=== PATIENT | female | born 1990 | race Caucasian/White ===

== ENCOUNTER 2017-06-17 12:28 | Emergency (ER) ==
[2017-06-17 12:44] VITALS: BP 127/96; TEMP 97.9; BMI 37.3
--- NOTE | 2017-06-17 13:06 | ED.PDOC ---
General ED Provider: Dr. BARRIE SADLER Chief Complaint: Eye Problem Stated Complaint: left eye nodule Time Seen by Physician: 12:34 Mode of Arrival: Walk-In Information Source: Patient Exam Limitations: No limitations Nursing and Triage Documentation Reviewed and Agree: Yes (seen with staff) EENT Complaint Exam - Eye Complaint/Exam Symptoms Are: Still present Timing: Constant Initial Severity: Mild Current Severity: Mild Location: Left Aggravating: Reports: None Alleviating: Reports: None (pt lanced the nodule today) Associated Signs and Symptoms: Denies: Photophobia, Clear drainage, Purulent drainage, Vision impairment, Fever, Swelling Related History: Reports: Similar episode Eye Surgical History: Reports: None Penetrating Injury Risk Factors: None Globe Rupture Risk Factors: None Acute Glaucoma Risk Factors: None Optic Artery Occlusion Risk Factors: None Visual Field: Normal Globe Findings: Intact Lid Findings: Normal (right nodule epper eye lid) Corneal Findings: Clear Review of Systems - Review Of Systems Constitutional: Reports: No symptoms Eyes: Reports: No symptoms Ears, Nose, Mouth, Throat: Reports: No symptoms Respiratory: Reports: No symptoms Cardiac: Reports: No symptoms GI: Reports: No symptoms : Reports: No symptoms Musculoskeletal: Reports: No symptoms Skin: Reports: No symptoms Neurological: Reports: No symptoms Endocrine: Reports: No symptoms Hematologic/Lymphatic: Reports: No symptoms All Other Systems: Reviewed and Negative Past Medical History - Past Medical History Previously Healthy: Yes Endocrine: Reports: None Cardiovascular: Reports: None Respiratory: Reports: None Hematological: Reports: None Gastrointestinal: Reports: None Genitourinary: Reports: None Neuro/Psych: Reports: None Musculoskeletal: Reports: None Cancer: Reports: None Last Menstrual Period: last month around the 15 - Surgical History General Surgical History: Reports: None - Family History Family History: Reports: None - Social History Smoking Status: Current some day smoker Hx Substance Use: No Alcohol Screening: None - Immunizations Tetanus Shot up to Date: Yes Physical Exam - Physical Exam Appearance: Well-appearing, No pain distress, Well-nourished Eyes: JUDSON, EOMI (papule upper lid see photos) ENT: Ears normal, Nose normal, Oropharynx normal Respiratory: Airway patent, Breath sounds clear, Breath sounds equal, Respirations nonlabored Cardiovascular: RRR, Pulses normal, No rub, No murmur GI/: Soft, Nontender, No masses, Bowel sounds normal, No Organomegaly Musculoskeletal: Normal strength, ROM intact, No edema, No calf tenderness Skin: Warm, Dry, Normal color Neurological: Sensation intact, Motor intact, Reflexes intact, Cranial nerves intact, Alert, Oriented Psychiatric: Affect appropriate, Mood appropriate Critical Care Note - Critical Care Note Total Time (mins): 0 Course - Course Vital Signs: Temp Pulse Resp BP Pulse Ox 06/17/17 12:32 97.9 F 90 20 127/96 H 97 Departure - Departure Time of Disposition: 13:06 (photos attached ) Disposition: HOME SELF-CARE Discharge Problem: Hordeolum externum Qualifiers: Laterality: left Eyelid: upper Qualifier Code: (H00.014) Hordeolum externum left upper eyelid Instructions: Stye (ED) Condition: Good Pt referred to PMD for follow-up: Yes Additional Instructions: Please call your Family Physician as soon as possible to schedule a follow-up appointment. Allergies/Adverse Reactions: Allergies No Known Allergies Allergy (Verified 06/17/17 12:39) Home Medications: Ambulatory Orders Diazepam [Valium] 10 mg PO TID PRN 09/14/16 Lamotrigine [Lamictal] 100 mg PO DAILY 09/14/16 Lurasidone HCl [Latuda] 60 mg PO d 09/14/16
== END 2017-06-17 13:13 | disposition home or self-care (01) ==
LOC: ED 12:28
DX: H00.014 Hordeolum externum left upper eyelid (principal); F17.210 Nicotine dependence, cigarettes, uncomplicated
CPT/HCPCS: 99282

== ENCOUNTER 2017-10-24 17:49 | Emergency (ER) ==
[2017-10-24 17:55] VITALS: BMI 35.7
--- NOTE | 2017-10-24 18:27 | ED.PDOC ---
General <JACOBBobALEX HERNANDEZ - Last Filed: 10/24/17 22:32> Stated Complaint: SUICIDAL IDEATION Time Seen by Physician: 18:00 (SEEN WITH JOSEF Manriquez AT ALL TIMES ) Mode of Arrival: Walk-In Information Source: Patient Exam Limitations: No limitations (STATED HER MEDICAL CARD IS CANCELED OUT SHE CAN NO AFFORD HER MEDS ) Nursing and Triage Documentation Reviewed and Agree: Yes Reviewed sepsis parameters & appropriate labs ordered?: Yes System Inflammatory Response Syndrome: Not Applicable System Inflammatory Response Syndrome: Not Applicable <BARRIE SADLER - Last Filed: 10/31/17 14:44> ED Provider: Dr. BARRIE SADLER Chief Complaint: Psychiatric Complaint Primary Care Provider: SHANIQUA VENTURA Sepsis Protocol: For patient's 13 years and over: Temp is 96.8 and below OR 101 and greater Pulse >90 BPM Resp >20/minute Acutely Altered Mental Status Are patient's symptoms suggestive of a new infection, such as: -Pneumonia -Skin, Soft Tissue -Endocarditis -UTI -Bone, Joint Infection -Implantable Device -Acute Abdominal Infection -Wound Infection -Meningitis -Blood Stream Catheter Infection -Unknown Psychological Complaint Exam - Psychiatric Complaint/Exam Patient Complains Of: Present: Suicidal thoughts, Other (HER MEDICAL CARD IS CANCELD OUT OF HER MEDS ) Onset/Duration: 3 DAYS WORSE TODAY Symptoms Are: Still present Timing: Constant Episodes Lasting: Hours Initial Severity: Mild Current Severity: Mild Character: Present: Fearful, Anxious, Frustrated Aggravating: Reports: Recent stress ( SEE ABOVE) Associated Signs And Symptoms: Denies: Hostile, Confused, Hallucinating, Paranoid behavior, Sleep disturbance, Appetite change Related History: Reports: Suicidal thoughts. Denies: Suicidal plan, Suicidal gestures, Homicidal thoughts, Homicidal plan, Homicidal gestures, Prior attempts , Recent stressors, Drug ingestion Completed Suicide Risk Factors: None Patient In Custody Of Police: No Social Withdrawal Present: No Social Isolation Present: No Prior Suicide Attempt: No Injury From Prior Suicide Attempt: No Related Surgical History: Reports: None Patient Uncooperative For Exam: No Mood: Present: Depressed Appearance: Present: Clean Thought Process: Present: Logical Insight: Present: Good Memory: Intact Judgement: Normal Danger To Others: No Patient Medically Stable For: Psych evaluation Differential Diagnoses: Suicidal 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 ) <BARRIE SADLER - Last Filed: 10/31/17 14:44> Review of Systems - Review Of Systems Constitutional: Reports: No symptoms Eyes: Reports: No symptoms Ears, Nose, Mouth, Throat: Reports: No symptoms Respiratory: Reports: No symptoms Cardiac: Reports: No symptoms GI: Reports: No symptoms : Reports: No symptoms Musculoskeletal: Reports: No symptoms Skin: Reports: No symptoms Neurological: Reports: Anxiety, Depressed, Emotional problems Endocrine: Reports: No symptoms Hematologic/Lymphatic: Reports: No symptoms All Other Systems: Reviewed and Negative <VIKTORIYABARRIE Last Filed: 10/31/17 14:44> Past Medical History - Past Medical History Previously Healthy: Yes Endocrine: Reports: None Cardiovascular: Reports: None Respiratory: Reports: None Hematological: Reports: None Gastrointestinal: Reports: None Genitourinary: Reports: None Neuro/Psych: Reports: None Musculoskeletal: Reports: None Cancer: Reports: None Last Menstrual Period: yesterday patient finished. - Surgical History General Surgical History: Reports: None - Family History Family History: Reports: None - Social History Smoking Status: Current some day smoker Hx Substance Use: No Alcohol Screening: None <MATTHEWMITESHBARRIE Filed: 10/31/17 14:44> Physical Exam - Physical Exam Appearance: Well-appearing, No pain distress, Well-nourished Eyes: JUDSON, EOMI, Conjunctiva clear ENT: Ears normal, Nose normal, Oropharynx normal Respiratory: Airway patent, Breath sounds clear, Breath sounds equal, Respirations nonlabored Cardiovascular: RRR, Pulses normal, No rub, No murmur GI/: Soft, Nontender, No masses, Bowel sounds normal, No Organomegaly Musculoskeletal: Normal strength, ROM intact, No edema, No calf tenderness Skin: Warm, Dry, Normal color Neurological: Sensation intact, Motor intact, Reflexes intact, Cranial nerves intact, Alert, Oriented Psychiatric: Affect appropriate, Mood appropriate <VIKTORIYABARRIE Last Filed: 10/31/17 14:44> Physician Notification - Case Discussed Physician Notified: JACOB Time of Notification: 19:00 <VIKTORIYABARRIE Rojas Last Filed: 10/31/17 14:44> Critical Care Note - Critical Care Note Total Time (mins): 0 <VIKTORIYABARRIE Last Filed: 10/31/17 14:44> Course - Course Hematology/Chemistry: 10/24/17 18:28 10/24/17 18:28 <ALEX JERRY - Last Filed: 10/24/17 22:32> - Course Hematology/Chemistry: 10/24/17 18:28 10/24/17 18:28 <BARRIE SADLER - Last Filed: 10/31/17 14:44> - Course Orders, Labs, Meds: Lab Review 10/24/17 10/24/17 10/24/17 18:28 18:28 18:28 WBC 10.10 RBC 4.53 Hgb 13.8 Hct 39.6 MCV 87.4 MCH 30.5 MCHC 34.8 RDW Coeff of [place] 13.8 Plt Count 418 Immature Gran % (Auto) 0.2 Neut % (Auto) 58.8 Lymph % (Auto) 34.7 [place] % (Auto) 4.5 Eos % (Auto) 1.2 Baso % (Auto) 0.6 Immature Gran # (Auto) 0.0 Neut # 6.0 Lymph # 3.5 H [place] # 0.5 Eos # 0.1 Baso # 0.1 Sodium 140 Potassium 3.6 Chloride 109 H Carbon Dioxide 23 Anion Gap 11.6 BUN 14 Creatinine 0.86 Estimated GFR (MDRD) 79.00 BUN/Creatinine Ratio 16.27 Glucose 116 H Calcium 9.5 Total Bilirubin 0.3 AST 51 H ALT 70 Alkaline Phosphatase 119 H Total Protein 8.4 H Albumin 3.6 Globulin 4.8 Albumin/Globulin Ratio 0.75 Serum , Qual Negative Urine Color Urine Clarity Urine pH Ur Specific [place] Urine Protein Urine Glucose (UA) Urine Ketones Urine Blood Urine Nitrite Urine Bilirubin Urine Urobilinogen Ur Leukocyte Esterase Urine Microscopic RBC Urine Microscopic WBC Ur Squamous Epith Cells Urine Bacteria Salicylate Level mg/dL < 5.0 Urine Opiates Screen Ur Oxycodone Screen Urine Methadone Screen Ur Propoxyphene Screen Acetaminophen < 3 L Ur Barbiturates Screen U Tricyclic Antidepress Ur Phencyclidine Scrn Ur Amphetamine Screen U Methamphetamines Scrn U Benzodiazepines Scrn Urine Cocaine Screen U Cannabinoids Screen Plasma/Serum Alcohol < 10.0 10/24/17 10/24/17 18:43 18:43 WBC RBC Hgb Hct MCV MCH MCHC RDW Coeff of [place] Plt Count Immature Gran % (Auto) Neut % (Auto) Lymph % (Auto) [place] % (Auto) Eos % (Auto) Baso % (Auto) Immature Gran # (Auto) Neut # Lymph # [place] # Eos # Baso # Sodium Potassium Chloride Carbon Dioxide Anion Gap BUN Creatinine Estimated GFR (MDRD) BUN/Creatinine Ratio Glucose Calcium Total Bilirubin AST ALT Alkaline Phosphatase Total Protein Albumin Globulin Albumin/Globulin Ratio Serum , Qual Urine Color Yellow Urine Clarity Clear Urine pH 7.0 Ur Specific [place] 1.020 Urine Protein Negative Urine Glucose (UA) Negative Urine Ketones Negative Urine Blood Trace-intact Urine Nitrite Negative Urine Bilirubin Negative Urine Urobilinogen 1.0 Ur Leukocyte Esterase Trace Urine Microscopic RBC 0-2 Urine Microscopic WBC 0-2 Ur Squamous Epith Cells 0-2 Urine Bacteria Trace Salicylate Level mg/dL Urine Opiates Screen Negative Ur Oxycodone Screen Negative Urine Methadone Screen Negative Ur Propoxyphene Screen Negative Acetaminophen Ur Barbiturates Screen Negative U Tricyclic Antidepress Negative Ur Phencyclidine Scrn Negative Ur Amphetamine Screen Negative U Methamphetamines Scrn Negative U Benzodiazepines Scrn Positive Urine Cocaine Screen Negative U Cannabinoids Screen Positive Plasma/Serum Alcohol Orders Category Date Time Status EKG-(ED ONLY) Stat CARDIO 10/24/17 18:16 Completed TRANSFER TO OUTSIDE FACILITY .TO OTHER OUTSIDE FACILITY CARE 10/24/17 22:33 Active (SEE ORDER DETAILS) WRITE TRANSFER/SBAR NOTE ONCE CARE 10/24/17 22:33 Completed DISCHARGE ASSESSMENT ONCE DISCHARGE 10/24/17 22:33 Completed WRITE DISCHARGE NOTE ONCE DISCHARGE 10/24/17 22:33 Completed 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 10/24/17 18:16 Active Mental Health Consult [ED MENTAL HEALTH CONSULT] .ONCE EMERGENCY 10/24/17 18: 29 Active ACETAMINOPHEN Stat LAB 10/24/17 18:28 Completed BLOOD ALCOHOL Stat LAB 10/24/17 18:28 Completed CBC W/ AUTO DIFF Stat LAB 10/24/17 18:28 Completed COMPREHENSIVE METABOLIC PANEL Stat LAB 10/24/17 18:28 Completed DRUG SCREEN, URINE, RAPID Stat LAB 10/24/17 18:43 Completed SALICYLATE Stat LAB 10/24/17 18:28 Completed SERUM Stat LAB 10/24/17 18:28 Completed URINALYSIS C & S IF INDICATED Stat LAB 10/24/17 18:43 Completed Vital Signs: Temp Pulse Resp BP Pulse Ox 10/24/17 22:40 98.1 F 79 16 125/70 96 10/24/17 22:13 80 140/93 H 96 10/24/17 21:18 84 25 H 125/78 97 01/10/18 20:57 83 19 98 10/24/17 17:50 99.1 F 104 H 20 135/87 99 Departure - Departure Pt referred to PMD for follow-up: No IPMP verified?: No Transfer Form Completed: Yes Disposition Discussed With: Patient <ALEX JERRY - Last Filed: 10/24/17 22:32> - Departure Time of Disposition: 01:00 Pt referred to PMD for follow-up: Yes IPMP verified?: Yes Disposition Discussed With: Patient <BARRIE SADLER - Last Filed: 10/31/17 14:44> - Departure Disposition: TSF SHORT-TRM HOSP Discharge Problem: Suicidal ideations Instructions: Depression (ED), Suicide Prevention for Adults (ED) Condition: Good Additional Instructions: Please call your Family Physician as soon as possible to schedule a follow-up appointment. Allergies/Adverse Reactions: Allergies No Known Allergies Allergy (Verified 10/24/17 17:57) Home Medications: Ambulatory Orders Diazepam [Valium] 10 mg PO TID PRN 09/14/16 Lamotrigine [Lamictal] 150 mg PO DAILY 09/14/16 Lurasidone HCl [Latuda] 60 mg PO d 09/14/16
[2017-10-24 22:55] VITALS: BP 125/70; TEMP 98.1
== END 2017-10-24 23:45 | disposition short-term general hospital (02) ==
LOC: ED 17:49
DX: R45.851 Suicidal ideations (principal); F17.210 Nicotine dependence, cigarettes, uncomplicated
CPT/HCPCS: 36415; 80053; 80306; 80307; 81001; 84703; 85025; 93005; 93010; 99285

== ENCOUNTER 2017-12-10 21:36 | Emergency (ER) ==
[2017-12-10 21:37] VITALS: BMI 35.7
[2017-12-10 21:55] VITALS: BP 140/94; TEMP 98.7
--- NOTE | 2017-12-10 22:14 | ED.PDOC ---
General ED Provider: Dr. MACRINA SKELTON Chief Complaint: Behavioral Complaint Stated Complaint: Patient is a 27 year female who state she connor been going thought some stress at home. Has been dealing with her 3 yr old son's recent seizure Dx. Then started having suicidal ideation with some Superficial cuts to Right upper abdomen. State she has had had thoughts of jumping off [employer] for [employer]. She denies over dose of any medication and has been taking her medications as prescribed. Taking all of her pills. and cutting her wrists. States she has a Hx bipolar, borderline personality. Time Seen by Physician: 22:13 Mode of Arrival: Walk-In Information Source: Patient Exam Limitations: No limitations Primary Care Provider: SHANIQUA VENTURA Nursing and Triage Documentation Reviewed and Agree: Yes Reviewed sepsis parameters & appropriate labs ordered?: No System Inflammatory Response Syndrome: Not Applicable Sepsis Protocol: For patient's 13 years and over: Temp is 96.8 and below OR 101 and greater Pulse >90 BPM Resp >20/minute Acutely Altered Mental Status Are patient's symptoms suggestive of a new infection, such as: -Pneumonia -Skin, Soft Tissue -Endocarditis -UTI -Bone, Joint Infection -Implantable Device -Acute Abdominal Infection -Wound Infection -Meningitis -Blood Stream Catheter Infection -Unknown System Inflammatory Response Syndrome: Not Applicable Psychological Complaint Exam - Psychiatric Complaint/Exam Patient Complains Of: Present: Depression, Suicidal thoughts, Suicidal gestures Onset/Duration: today Symptoms Are: Still present Timing: Constant Current Severity: Severe Character: Present: Depressed, Fearful, Anxious, Frustrated Aggravating: Reports: Recent stress Associated Signs And Symptoms: Denies: Hostile, Confused, Hallucinating, Paranoid behavior, Sleep disturbance, Appetite change Related History: Reports: Suicidal thoughts, Suicidal plan, Suicidal gestures Completed Suicide Risk Factors: None Patient In Custody Of Police: No Social Withdrawal Present: No Social Isolation Present: No Prior Suicide Attempt: No Injury From Prior Suicide Attempt: No Related Surgical History: Reports: None Patient Uncooperative For Exam: No Mood: Present: Depressed, Anxious Appearance: Present: Clean Thought Process: Present: Logical Insight: Present: Limited Memory: Intact Judgement: Normal Danger To Others: No Patient Medically Stable For: Psych evaluation, Referral, Transfer Differential Diagnoses: Anxiety, Bipolar Disorder, Suicide Attempt, Suicidal Ideation Review of Systems - Review Of Systems Constitutional: Reports: No symptoms Eyes: Reports: No symptoms Ears, Nose, Mouth, Throat: Reports: No symptoms Respiratory: Reports: No symptoms Cardiac: Reports: No symptoms GI: Reports: No symptoms : Reports: No symptoms Musculoskeletal: Reports: No symptoms Skin: Reports: No symptoms Neurological: Reports: Anxiety, Depressed, Emotional problems Endocrine: Reports: No symptoms Hematologic/Lymphatic: Reports: No symptoms All Other Systems: Reviewed and Negative Past Medical History - Past Medical History Previously Healthy: Yes Endocrine: Reports: None Cardiovascular: Reports: None Respiratory: Reports: None Hematological: Reports: None Gastrointestinal: Reports: None Genitourinary: Reports: None Neuro/Psych: Reports: Anxiety, Depression, Bipolar Disorder Musculoskeletal: Reports: None Cancer: Reports: None Last Menstrual Period: 1 month - Surgical History General Surgical History: Reports: Tubal ligation - Family History Family History: Reports: None - Social History Smoking Status: Current some day smoker, Heavy tobacco smoker Hx Substance Use: Yes (marijuana) Alcohol Screening: None Physical Exam - Physical Exam Appearance: Well-appearing, Obese Ill-appearing: Mild Eyes: JUDSON, EOMI, Conjunctiva clear Neck: Supple Respiratory: Airway patent, Breath sounds clear, Breath sounds equal, Respirations nonlabored Cardiovascular: Tachycardia GI/: Soft, Nontender, No masses, Bowel sounds normal, No Organomegaly Musculoskeletal: Normal strength Skin: Warm, Dry (superficial skin laceration on the right upper quadrant.) Neurological: Sensation intact, Motor intact, Reflexes intact, Cranial nerves intact, Alert, Oriented Psychiatric: Anxious, Depressed Critical Care Note - Critical Care Note Total Time (mins): 0 Course - Course Hematology/Chemistry: 12/10/17 22:26 12/10/17 22:26 Orders, Labs, Meds: Lab Review 12/10/17 12/10/17 12/10/17 22:26 22:26 23:00 WBC 10.52 H RBC 4.79 Hgb 14.3 Hct 41.7 MCV 87.1 MCH 29.9 MCHC 34.3 RDW Coeff of [place] 13.5 Plt Count 431 Immature Gran % (Auto) 0.5 Neut % (Auto) 57.1 Lymph % (Auto) 34.9 [place] % (Auto) 4.4 Eos % (Auto) 2.4 Baso % (Auto) 0.7 Immature Gran # (Auto) 0.1 Neut # 6.0 Lymph # 3.7 H [place] # 0.5 Eos # 0.3 Baso # 0.1 Sodium 138 Potassium 3.8 Chloride 103 Carbon Dioxide 23 Anion Gap 15.8 BUN 10 Creatinine 0.88 Estimated GFR (MDRD) 77.00 BUN/Creatinine Ratio 11.36 Glucose 88 Calcium 9.5 Total Bilirubin 0.7 AST 67 H ALT 86 H Alkaline Phosphatase 123 H Total Protein 8.5 H Albumin 3.8 Globulin 4.7 Albumin/Globulin Ratio 0.81 TSH Serum , Qual Urine Color Urine Clarity Urine pH Ur Specific [place] Urine Protein Urine Glucose (UA) Urine Ketones Urine Blood Urine Nitrite Urine Bilirubin Urine Urobilinogen Ur Leukocyte Esterase Urine Microscopic WBC Ur Squamous Epith Cells Amorphous Sediment Urine Bacteria Salicylate Level mg/dL < 5.0 Urine Opiates Screen Negative Ur Oxycodone Screen Negative Urine Methadone Screen Negative Ur Propoxyphene Screen Negative Acetaminophen < 3 L Ur Barbiturates Screen Negative U Tricyclic Antidepress Negative Ur Phencyclidine Scrn Negative Ur Amphetamine Screen Negative U Methamphetamines Scrn Negative U Benzodiazepines Scrn Positive Urine Cocaine Screen Negative U Cannabinoids Screen Positive Plasma/Serum Alcohol < 10.0 12/10/17 12/11/17 12/11/17 23:00 00:00 00:00 WBC RBC Hgb Hct MCV MCH MCHC RDW Coeff of [place] Plt Count Immature Gran % (Auto) Neut % (Auto) Lymph % (Auto) [place] % (Auto) Eos % (Auto) Baso % (Auto) Immature Gran # (Auto) Neut # Lymph # [place] # Eos # Baso # Sodium Potassium Chloride Carbon Dioxide Anion Gap BUN Creatinine Estimated GFR (MDRD) BUN/Creatinine Ratio Glucose Calcium Total Bilirubin AST ALT Alkaline Phosphatase Total Protein Albumin Globulin Albumin/Globulin Ratio TSH 1.978 Serum , Qual Negative Urine Color Yellow Urine Clarity Slightly Urine pH 6.0 Ur Specific [place] 1.025 Urine Protein Negative Urine Glucose (UA) Negative Urine Ketones Negative Urine Blood Negative Urine Nitrite Negative Urine Bilirubin 1+ Urine Urobilinogen 1.0 Ur Leukocyte Esterase 1+ Urine Microscopic WBC 2-5 Ur Squamous Epith Cells 5-10 Amorphous Sediment Trace Urine Bacteria Trace Salicylate Level mg/dL Urine Opiates Screen Ur Oxycodone Screen Urine Methadone Screen Ur Propoxyphene Screen Acetaminophen Ur Barbiturates Screen U Tricyclic Antidepress Ur Phencyclidine Scrn Ur Amphetamine Screen U Methamphetamines Scrn U Benzodiazepines Scrn Urine Cocaine Screen U Cannabinoids Screen Plasma/Serum Alcohol Orders Category Date Time Status EKG-(ED ONLY) Stat CARDIO 12/10/17 22:12 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 EMERGENCY 12/10/17 22:12 Active ACETAMINOPHEN Stat LAB 12/10/17 22:26 Completed BLOOD ALCOHOL Stat LAB 12/10/17 22:26 Completed CBC W/ AUTO DIFF Stat LAB 12/10/17 22:26 Completed COMPREHENSIVE METABOLIC PANEL Stat LAB 12/10/17 22:26 Completed DRUG SCREEN, URINE, RAPID Stat LAB 12/10/17 23:00 Completed HCG QUALITATIVE [SERUM ] Stat LAB 12/11/17 00:00 Completed SALICYLATE Stat LAB 12/10/17 22:26 Completed THYROID STIMULATING HORMONE Stat LAB 12/11/17 00:00 Completed URINALYSIS C & S IF INDICATED Stat LAB 12/10/17 23:00 Completed Vital Signs: Temp Pulse Resp BP Pulse Ox 12/10/17 21:41 98.7 F 113 H 20 140/94 H 95 Departure - Departure Time of Disposition: 02:30 Disposition: T[facility] SHORT-TRM HOSP Discharge Problem: Suicidal ideation Condition: Stable Pt referred to PMD for follow-up: Yes IPMP verified?: No Allergies/Adverse Reactions: Allergies No Known Allergies Allergy (Verified 12/10/17 21:51) Home Medications: Ambulatory Orders Diazepam [Valium] 10 mg PO TID PRN 09/14/16 Lamotrigine [Lamictal] 150 mg PO DAILY 09/14/16 Lurasidone HCl [Latuda] 60 mg PO d 09/14/16
== END 2017-12-11 02:33 | disposition short-term general hospital (02) ==
LOC: ED 21:36
DX: R45.851 Suicidal ideations (principal); S31.110A Laceration without foreign body of abdominal wall, right upper quadrant without penetration into peritoneal cavity, initial encounter; W45.8XXA Other foreign body or object entering through skin, initial encounter; F17.210 Nicotine dependence, cigarettes, uncomplicated
CPT/HCPCS: 36415; 80053; 80306; 80307; 81001; 84443; 84703; 85025; 99285

== ENCOUNTER 2017-12-19 09:28 | Outpatient (CLI) ==
--- NOTE | 2017-12-19 10:07 | US ---
EXAM: Right upper quadrant abdominal ultrasound. History: Elevated liver enzymes. Comparison: CT abdomen pelvis 03/28/2014 Technique: Multiple sonographic images through the abdomen were obtained. Color duplex Doppler was used to interrogate vascular flow. Findings: The visualized pancreas demonstrates no gross abnormality. No abdominal ascites. There is antegrade flow within the main portal vein. The liver is diffusely echogenic. Limited visualization of the r ight kidney demonstrates no evidence for hydronephrosis. No shadowing gallstones. Gallbladder wall is not thickened. Common bile duct measures 0.5 cm in caliber. Small area of focal fatty sparing se en within the liver adjacent to the gallbladder. No suspicious liver lesions. Impression: Hepatic steatosis
== END 2017-12-19 09:29 | disposition home or self-care (01) ==
LOC: RAD 09:28
PROVIDERS: ATTEND Physician Assistant
DX: R74.8 Abnormal levels of other serum enzymes (principal)

== ENCOUNTER 2017-12-24 04:39 | Outpatient (CLI) | END 2017-12-24 04:40 | disposition short-term general hospital (02) | LOC: AMBL 04:39 | PROVIDERS: ATTEND Family Medicine | DX: R10.9 Unspecified abdominal pain (principal); R11.2 Nausea with vomiting, unspecified ==